=== PATIENT | male | born 2000 | race Two or more races ===

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

== ENCOUNTER 2022-03-18 21:05 | Emergency (ER) | payer SELFPAY ==
[~2022-03-18] VITALS: Ht 162.6 cm; Wt 63.7 kg
[2022-03-19] MEDS ORDERED: METH-653 MT (03:32)
[2022-03-19] MEDS ORDERED: IBUP-2029 MT (03:32)
[2022-03-19 03:45] VITALS: BP 124/78
== END 2022-03-19 03:45 | disposition home or self-care (01) ==
LOC: ER 21:05
DX: S39.012A Strain of muscle, fascia and tendon of lower back, initial encounter (principal); V43.52XA Car driver injured in collision with other type car in traffic accident, initial encounter; Y93.89 Activity, other specified; Y92.411 Interstate highway as the place of occurrence of the external cause
CPT/HCPCS: 72070; 72100; 99284